=== PATIENT | female | born 1980 | race Caucasian/White ===

== ENCOUNTER 2016-10-10 19:08 | Emergency (ER) | payer OTHER ==
[~2016-10-10] VITALS: Ht 157.5 cm; Wt 63.5 kg
[~2016-10-10 19:08] MED LIST: AMOXICILLIN500 M1 PO; BACTRIM DS TABL1 TAB PO; CIPRO PO; DIFLUCAN PO; FIORINAL W/CODE1 CAP PO; NABUMETONE PO; NAPROSYN-EC500 M1 PO; NO MEDICATIONS; PHENERGAN PO; PREDNISONE PO; PYRIDIUM PO; SUBOXONE 8 MG-1 EACH SL; SUBOXONE PO; TYLENOL/CO12 MG/5 ML PO; TYLOX 5/500 CAP1 CAP PO; WELLBUTRIN XL PO; ZOFRAN PO; [UNRECOGNIZED DRUG - OTHER] MC
[2016-10-10] MEDS ORDERED: ANTIDEPRESSANT PO (19:18)
[2016-10-10 19:40] LABS: URINE SOURCE CLEAN CATCH
[2016-10-10 19:42] LABS: URINE APPEARANCE SL CLOUDY; URINE BILIRUBIN NEG (NEG); URINE BLOOD 1+ (NEG); URINE COLOR ORANGE; URINE KETONE NEG (NEG); URINE LEUKOCYTE ESTERASE 3+ (NEG); URINE NITRATE POS (NEG); URINE PROTEIN 1+ (NEG)
[2016-10-10 19:44] LABS: MICRO INDICATED? YES; URINE GLUCOSE NORM (NORM)
[2016-10-10 19:51] LABS: URINE WBC INNUM /[HPF] (0-5)
[2016-10-10 19:52] LABS: CULTURE INDICATED? YES; URINE BACTERIA 2+ (NEG); URINE MUCUS PRESENT; URINE SQUAMOUS EPITHELIAL CELL FEW /[HPF]
== END 2016-10-10 20:43 | disposition home or self-care (01) ==
LOC: SED 19:08
PROVIDERS: Nurse Practitioner Family
DX: N39.0 Urinary tract infection, site not specified (principal)
CPT/HCPCS: 81003; 84703; 87086; 87088; 87186; 99283